=== PATIENT | female | born 1980 | race Caucasian/White ===

== ENCOUNTER 2018-04-21 17:45 | Emergency (ER) | payer MEDICARE, MEDICAID ==
[2018-04-21 20:47] VITALS: BP 112/78
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
--- NOTE | 2018-04-22 14:57 | CR ---
INDICATION: Chest pain. CHEST: Portable AP upright view of the chest was obtained 04/21/2018. No comparisons were available. The heart is normal in size and shape. A minimal dextroconcave scoliosis of the mid thoracic spine is suggested. Overlying EKG leads are noted. An active infiltrate or effusion was not identified. IMPRESSION: No acute process. MTDD
== END 2018-04-21 19:50 | disposition home or self-care (01) ==
LOC: FB.ED 17:45
DX: M94.0 Chondrocostal junction syndrome [Tietze] (principal); F25.9 Schizoaffective disorder, unspecified; F41.9 Anxiety disorder, unspecified; K21.9 Gastro-esophageal reflux disease without esophagitis; E66.9 Obesity, unspecified; M79.7 Fibromyalgia; F17.210 Nicotine dependence, cigarettes, uncomplicated; Z79.899 Other long term (current) drug therapy; Z88.5 Allergy status to narcotic agent
CPT/HCPCS: 36415; 71045; 80053; 84484; 85025; 85379; 93005; 99284

== ENCOUNTER 2018-07-01 18:08 | Emergency (ER) | payer MEDICARE, MEDICAID ==
[2018-07-01] MEDS ORDERED: tiZANidine 4 MG Tab PO PRN (19:04)
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
[2018-07-01 21:15] VITALS: BP 105/73
== END 2018-07-01 20:23 | disposition home or self-care (01) ==
LOC: FB.ED 18:08
DX: G44.209 Tension-type headache, unspecified, not intractable (principal); F41.9 Anxiety disorder, unspecified; F32.9 Major depressive disorder, single episode, unspecified; Z88.8 Allergy status to other drugs, medicaments and biological substances; Z88.6 Allergy status to analgesic agent; Z88.0 Allergy status to penicillin; Z79.899 Other long term (current) drug therapy
CPT/HCPCS: 99283; A9270-GY

== ENCOUNTER 2022-01-28 19:31 | Emergency (ER) | payer MEDICAID, MEDICARE, OTHER ==
[2022-01-28] MEDS ORDERED: predniSONE 20 MG Tab PO ONE ×2 (19:32→23:33)
[2022-01-28] MEDS ORDERED: Acetaminophen 500 MG Tab PO ONE (21:38)
[2022-01-28] MEDS ORDERED: methylPREDNISolone Sodium Succinate 125 MG/2 ML SDV IM ONE (21:38)
== END 2022-01-28 23:55 | disposition home or self-care (01) ==
LOC: FB.ED 19:31
DX: R09.1 Pleurisy (principal); Z88.5 Allergy status to narcotic agent; Z88.8 Allergy status to other drugs, medicaments and biological substances
CPT/HCPCS: 36415; 71046; 80053; 83735; 84484; 85025; 85379; 86140; 93005; 96372; 99283; 99284-25; A9270-GY; J2930; J7512

== ENCOUNTER 2025-05-22 13:32 | Emergency (ER) | payer MEDICARE ==
[2025-05-22 13:54] VITALS: BP 116/71; PULSE 90
[2025-05-22] MEDS: Acetaminophen/oxyCODONE 325-5 MG Tab PO ONE (14:13)
[2025-05-22] MEDS: hydrOXYzine HCl 50 MG/ML SDV IM ONE (14:13)
== END 2025-05-22 14:45 | disposition home or self-care (01) ==
LOC: FB.ED 13:32
DX: G43.109 Migraine with aura, not intractable, without status migrainosus (principal); J45.909 Unspecified asthma, uncomplicated; F17.210 Nicotine dependence, cigarettes, uncomplicated; Z88.8 Allergy status to other drugs, medicaments and biological substances; Z88.5 Allergy status to narcotic agent; Z79.899 Other long term (current) drug therapy
CPT/HCPCS: 96372; 99283; A9270-GY; J3410